=== PATIENT | female | born 1945 | race Caucasian/White ===

== ENCOUNTER 2022-09-17 09:00 | Inpatient (IN) | payer MEDICARE, OTHER ==
[2022-09-11 13:01] LABS: BASOPHILS # (AUTO) 0.1 X10'3 (0-0.2); BASOPHILS % (AUTO) 0.8 % (0-1); EOSINOPHILS # (AUTO) 0.3 X10'3 (0-0.9); EOSINOPHILS % (AUTO) 4.3 % (0-6); LYMPHOCYTES # (AUTO) 1.5 X10'3 (1.1-4.8); LYMPHOCYTES % (AUTO) 21.2 % (21-51); MEAN CORPUSCULAR HEMOGLOBIN 28.8 PG (27.0-31.0); MEAN CORPUSCULAR HGB CONC 32.9 g/dL (33.0-36.5); MEAN CORPUSCULAR VOLUME 87.5 FL (78-98); MEAN PLATELET VOLUME 7.1 FL (7.4-10.4); MONOCYTES # (AUTO) 0.5 X10'3 (0-0.9); MONOCYTES % (AUTO) 7.6 % (2-12); NEUTROPHILS # (AUTO) 4.6 X10'3 (1.8-7.7); NEUTROPHILS % (AUTO) 66.1 % (42-75); PRE OP HEMATOCRIT 36.7 % (35.0-45.0); PRE OP HEMOGLOBIN 12.1 g/dL (12.0-16.0); PRE OP PLATELET COUNT 347 X10'3 (140-440); RED BLOOD COUNT 4.19 X10'6 (4.20-5.60); RED CELL DISTRIBUTION WIDTH 14.7 % (11.5-14.5)
[2022-09-11 13:03] LABS: ALBUMIN 3.5 G/DL (3.4-5.0); ALBUMIN/GLOBULIN RATIO 0.9 (1.1-1.5); ALKALINE PHOSPHATASE 87 IU/L (46-116); BLOOD UREA NITROGEN 12 MG/DL (7-18); CALCIUM 9.1 MG/DL (8.5-10.1); CHLORIDE 104 MMOL/L (99-107); PRE OP ALT 17 U/L (30-65); PRE OP ANION GAP 8 (8-16); PRE OP AST 13 U/L (10-37); PRE OP BILIRUB, TOTAL 0.3 MG/DL (0.0-1.0); PRE OP GLUCOSE 111 MG/DL (70-104); PRE OP POTASSIUM 3.9 MMOL/L (3.4-5.1); PRE OP SODIUM 140 MMOL/L (135-145); TOTAL CARBON DIOXIDE 28.2 MMOL/L (24-32); TOTAL PROTEIN 7.6 G/DL (6.4-8.2); eGFR > 90 ML/MIN
[2022-09-17] VITALS (24 sets, daily range): BP systolic 106–174; BP diastolic 48–104
[~2022-09-17] VITALS: Ht 152.4 cm; Wt 108.9 kg
[~2022-09-17 09:00] MED LIST: ADV50250 INH; BENA20TA82 PO; CALC600T22 PO; CHOL10006 PO; FLUT16SP2 BOTHNARES; HYDROcodone/acetaminophen 10/325mg tab PO PRN; IBUP-2803 PO; LORA10TA61 PO; MULT-227 PO; OMEP20CA16 PO; acetaminophen 325mg tablet PO ONE; acetaminophen 325mg tablet PO PRN; bisacodyl 10mg suppository rectal RC PRN; cefazolin 2gm/D5W 100mL 100 ML IV ONE; celeCOXIB 100mg capsule PO ONE; diphenhydrAMINE 25mg capsule PO PRN; famotidine 20mg tablet PO ONE; gabapentin 300mg capsule PO ONE; magnesium hydroxide 30ml (MOM) UD suspension PO PRN; metoclopramide 5 mg/ml inj IV ONE; naloxone 0.4 mg/ml inj IV PRN; oxyCODONE SR 10mg (sust. release) tab -2 tabs (20mg) PO ONE; ringers solution, lacted 1,000 ML IV SCH; tranexamic acid inj. 1,000 MG in normal saline IV soln 100ML IV ONE; vancomycin 1,500 MG in NS 300ml IV soln IV ONE
[2022-09-17] MEDS ORDERED: albuterol 2.5 MG/3 ML nebule NEB PRN (10:20)
--- NOTE | 2022-09-17 10:30 | NUR ---
PT SHOWERED W/ CHG SOAP PER PROTOCOL X 5. PT ALSO READ OVER TOTAL JOINT BOOKLET AND STATES UNDERSTANDING. STRONG PALPABLE PEDAL PULSE TO RIGHT FOOT, MARKED W/ SKIN MARKER. GOOD CSM TO RIGHT FOOT.
[2022-09-17] MEDS ORDERED: ringers solution, lacted 1,000 ML IV SCH (11:25)
[2022-09-17] MEDS ORDERED: proCHLORperazine 10 MG/2 ml inj IV PRN (11:25)
[2022-09-17] MEDS ORDERED: meperidine/PF 25mg/ml syringe IV PRN ×3 (11:25)
[2022-09-17] MEDS ORDERED: ondansetron/PF 4mg/2ml inj IV PRN ×2 (11:25→14:00)
[2022-09-17] MEDS ORDERED: morphine 4 MG/ML inj SYRINge IV PRN (11:25)
[2022-09-17] MEDS ORDERED: morphine 2 MG/ML inj. syringe IV PRN (11:25)
[2022-09-17] MEDS ORDERED: MIDAZolam 1 MG/ML 5ML VIAL ONE (12:41)
[2022-09-17] MEDS ORDERED: fentaNYL/PF 50MCG/1 ML 2ML syringe ONE (12:41)
[2022-09-17] MEDS ORDERED: HYDROmorphone 1 mg/ml syringe IV PRN (13:00)
[2022-09-17] MEDS ORDERED: HYDROmorphone inj. 0.5 MG/0.5 ML DISP.SYRIN IV PRN (13:00)
[2022-09-17] MEDS ORDERED: epiNEPHrine 1 mg/ml inj ONE (13:46)
[2022-09-17] MEDS ORDERED: ROPIVAcaine 0.5% (5mg/ml) 30ml vial ONE ×2 (13:46→14:01)
[2022-09-17] MEDS ORDERED: cloNIDine hcl/PF 100mcg/ml inj ONE (13:46)
[2022-09-17] MEDS ORDERED: vancomycin 1,000mg inj ONE (13:46)
[2022-09-17] MEDS ORDERED: ROPIVAcaine 0.2%/PF PUMP/bolus 545 ML ADDCANAL SCH (14:25)
[2022-09-17] MEDS ORDERED: ROPIVAcaine 0.2% (10 MG/5 ML) BOLUS INJECTION ADDCANAL PRN (14:25)
[2022-09-17] MEDS ORDERED: BUPIVAcaine/PF 7.5mg/ml (0.75%) 10ml vial ONE (14:45)
--- NOTE | 2022-09-17 14:45 | NUR ---
Patient in room [facility] 358. I have received report from DAVID Cast and had the opportunity to ask questions and assume patient care.
--- NOTE | 2022-09-17 14:54 | NUR ---
Report called to receiving nurse. Transferred via BED W/2 BAGS OF Belongings. BLL, CALL LIGHT GIVEN, SIDE RAILS UP X 2. RECEIVING RN AT BEDSIDE TO RECEIVE PT, PTS AT BEDSIDE. Special Issues communicated to receiving nurse. YES. Addendum: 09/17/22 at 1729 by Serene Tadeo RN Amended: Links added. Addendum: 09/17/22 at 1732 by Serene Tadeo RN ERROR OF TIME: 16:54 FOR TRANSFER NOT 14:54.
--- NOTE | 2022-09-17 14:54 | NUR ---
Received from OR via BED, accompanied by Anesthesiologist DR GRANDE and report given by Anesthesiologist AND DOUBLE BASS PLAYER. PT DROWSY, DENIES PAIN. RIGHT KNEE W/KNEE WRAP, DRSG, POWDER PACK CDI, MARLY DRAIN/DRSG W/GREEN LIGHT ILLUMINATION, ADB CATHETER INTACT. Addendum: 09/17/22 at 1520 by Serene Tadeo RN Amended: Links added.
--- NOTE | 2022-09-17 17:16 | NUR ---
waiting on pharmacy for the cefazolin to be delivered.
[2022-09-17] MEDS ORDERED: tranexamic acid inj. 1,090 MG in normal saline 100ml IV soln 89.1 ML IV ONE (18:00)
--- NOTE | 2022-09-17 18:20 | NUR ---
Patient in room [facility] 358. I have received report from IMANI Newton and DAVID Connor and had the opportunity to ask questions and assume patient care.
--- NOTE | 2022-09-17 18:21 | NUR ---
Problems reprioritized. Patient report given, questions answered & plan of care reviewed with DAVID Kent.
[2022-09-17] MEDS: potassium cl 20mEq in 1/2 NS 1,000 ML IV SCH ×2 (18:51→23:00)
[2022-09-17] MEDS ORDERED: VANCOMYCIN 1,500MG inj. 1,500 MG in normal saline 500ml IV soln 300 ML IV ONE (20:00)
[2022-09-17] MEDS: budesonide 0.5mg/2ml UD nebule IH SCH (20:00)
[2022-09-17] MEDS: ascorbic acid 500mg tablet PO SCH (20:53)
[2022-09-17] MEDS: gabapentin 300mg capsule PO SCH (20:54)
[2022-09-17] MEDS ORDERED: sennosides 8.6mg tablet PO SCH (21:00)
[2022-09-17] MEDS ORDERED: lisinopril 20mg tablet PO SCH (21:00)
[2022-09-17] MEDS: HYDROcodone/acetaminophen 10/325mg tab PO PRN (21:10)
[2022-09-18 02:00] VITALS: BP 107/57
[2022-09-18] MEDS: HYDROcodone/acetaminophen 10/325mg tab PO PRN (06:36)
--- NOTE | 2022-09-18 06:47 | NUR ---
Problems reprioritized. Patient report given, questions answered & plan of care reviewed with DAVID Edmondson.
[2022-09-18 06:55] VITALS: BP 99/50
[2022-09-18 06:57] LABS: BASOPHILS % (AUTO) 0.3 % (0-1); EOSINOPHILS % (AUTO) 0.1 % (0-6); HEMATOCRIT 31.6 % (35.0-45.0); HEMOGLOBIN 10.3 g/dl (12.0-16.0); LYMPHOCYTES # (AUTO) 0.8 X10'3 (1.1-4.8); LYMPHOCYTES % (AUTO) 9.9 % (21-51); MEAN CORPUSCULAR HEMOGLOBIN 28.3 PG (27.0-31.0); MEAN CORPUSCULAR HGB CONC 32.4 g/dL (33.0-36.5); MEAN CORPUSCULAR VOLUME 87.3 FL (78-98); MEAN PLATELET VOLUME 6.9 FL (7.4-10.4); MONOCYTES # (AUTO) 0.6 X10'3 (0-0.9); MONOCYTES % (AUTO) 7.9 % (2-12); NEUTROPHILS # (AUTO) 6.2 X10'3 (1.8-7.7); NEUTROPHILS % (AUTO) 81.8 % (42-75); PLATELET COUNT 312 X10'3 (140-440); RED BLOOD COUNT 3.62 X10'6 (4.20-5.60); RED CELL DISTRIBUTION WIDTH 14.6 % (11.5-14.5); WHITE BLOOD COUNT 7.6 X10'3 (4.5-11.0)
[2022-09-18] MEDS: potassium cl 20mEq in 1/2 NS 1,000 ML IV SCH (07:00)
--- NOTE | 2022-09-18 07:01 | NUR ---
Patient in room [facility] 358. I have received report from shraddha dozier and had the opportunity to ask questions and assume patient care.
[2022-09-18 07:03] LABS: ANION GAP 5 (8-16); CHLORIDE 106 MMOL/L (99-107); POTASSIUM 4.1 MMOL/L (3.5-5.1); SODIUM 140 MMOL/L (135-145); TOTAL CARBON DIOXIDE 29.5 MMOL/L (24-32)
[2022-09-18] MEDS: gabapentin 300mg capsule PO SCH (07:38)
[2022-09-18] MEDS: ascorbic acid 500mg tablet PO SCH (08:00)
[2022-09-18] MEDS ORDERED: loratadine 10mg tablet PO PRN (08:00)
[2022-09-18] MEDS ORDERED: multivitamins, therapeutics tablet PO SCH (08:00)
[2022-09-18] MEDS ORDERED: pantoprazole 40mg Tablet.DR PO SCH (08:00)
[2022-09-18] MEDS ORDERED: fluticasone nasal spray 16GM bottle NS PRN (08:00)
[2022-09-18] MEDS ORDERED: aspirin 325mg tablet PO SCH (08:30)
[2022-09-18] MEDS: budesonide 0.5mg/2ml UD nebule IH SCH (09:46)
[2022-09-18 10:14] VITALS: BP 106/51
--- NOTE | 2022-09-18 13:49 | NUR ---
PT DISCHARGED IN STABLE CONDITION. LEFT FACILITY IN PRIVATE VEHICLE WITH . IV DCd CANULA INTACT. FOLLOW UP INSTRUCTIONS GIVEN, ALL QUESTIONS ANSWERED. ALL BELONGINGS IN HAND. Addendum: 09/18/22 at 1350 by Jo Ann Ramey RN Amended: Links added.
--- NOTE | 2022-09-18 17:31 | NUR ---
Joint surgery consult: Pt s/p R knee surgery but discharged prior to RD visit this admit. Written high protein diet ed w/ RD contact information mailed to pt home address provided in EMR. Addendum: 09/18/22 at [address] Amended: Links added.
[2022-09-18] MEDS ORDERED: celeCOXIB 100mg capsule PO SCH (20:00)
== END 2022-09-18 13:36 | disposition home or self-care (01) | DRG 470 ==
LOC: PAS 09:00 → SUR 3N 17:02
PROVIDERS: ADMIT Orthopaedic Surgery; ATTEND Orthopaedic Surgery
PROC: 3E0T3BZ Introduction of Anesthetic Agent into Peripheral Nerves and Plexi, Percutaneous Approach (ICD-10-PCS; 2022-09-17)
PROC: 3E0T33Z Introduction of Anti-inflammatory into Peripheral Nerves and Plexi, Percutaneous Approach (ICD-10-PCS; 2022-09-17)
PROC: 0SRC0J9 Replacement of Right Knee Joint with Synthetic Substitute, Cemented, Open Approach (ICD-10-PCS; principal; 2022-09-17 12:27)
DX: M17.11 Unilateral primary osteoarthritis, right knee (principal); Z79.899 Other long term (current) drug therapy
CPT/HCPCS: 36415; 73560; 80051; 80053; 82948; 84484; 85025; 86885; 86900; 86901; 87081; 93970; 94640; 94760; 97110; 97116; 97161; 97530; A4215; A4615; A7000; C1713; C1776; G0378; J0171; J0690; J0735; J2250; J2765; J2795; J3010; J3370; J3480; J3490; J7030; J7040; J7060; J7120

== ENCOUNTER 2022-09-18 15:13 | Emergency (ER) | payer MEDICARE, OTHER ==
[~2022-09-18] VITALS: Ht 152.4 cm; Wt 109.1 kg
[~2022-09-18 15:13] MED LIST changes: -HYDROcodone/acetaminophen 10/325mg tab PO PRN; -acetaminophen 325mg tablet PO ONE; -acetaminophen 325mg tablet PO PRN; -bisacodyl 10mg suppository rectal RC PRN; -cefazolin 2gm/D5W 100mL 100 ML IV ONE; -celeCOXIB 100mg capsule PO ONE; -diphenhydrAMINE 25mg capsule PO PRN; -famotidine 20mg tablet PO ONE; -gabapentin 300mg capsule PO ONE; -magnesium hydroxide 30ml (MOM) UD suspension PO PRN; -metoclopramide 5 mg/ml inj IV ONE; -naloxone 0.4 mg/ml inj IV PRN; -oxyCODONE SR 10mg (sust. release) tab -2 tabs (20mg) PO ONE; -ringers solution, lacted 1,000 ML IV SCH; -tranexamic acid inj. 1,000 MG in normal saline IV soln 100ML IV ONE; -vancomycin 1,500 MG in NS 300ml IV soln IV ONE
[2022-09-18] MEDS ORDERED: normal saline 1000ML IV soln IVB ONE (15:35)
[2022-09-18 15:54] LABS: BASOPHILS % (AUTO) 0.4 % (0-1); EOSINOPHILS % (AUTO) 0.5 % (0-6); HEMATOCRIT 31.1 % (35.0-45.0); HEMOGLOBIN 10.2 g/dl (12.0-16.0); LYMPHOCYTES # (AUTO) 1.2 X10'3 (1.1-4.8); LYMPHOCYTES % (AUTO) 12.1 % (21-51); MEAN CORPUSCULAR HEMOGLOBIN 28.7 PG (27.0-31.0); MEAN CORPUSCULAR HGB CONC 32.7 g/dL (33.0-36.5); MEAN CORPUSCULAR VOLUME 87.7 FL (78-98); MEAN PLATELET VOLUME 6.7 FL (7.4-10.4); NEUTROPHILS # (AUTO) 7.9 X10'3 (1.8-7.7); PLATELET COUNT 323 X10'3 (140-440); RED BLOOD COUNT 3.54 X10'6 (4.20-5.60); RED CELL DISTRIBUTION WIDTH 14.9 % (11.5-14.5); WHITE BLOOD COUNT 10.3 X10'3 (4.5-11.0)
[2022-09-18 16:24] LABS: ALANINE AMINOTRANSFERASE 15 U/L (12-78); ALBUMIN 2.9 G/DL (3.4-5.0); ALBUMIN/GLOBULIN RATIO 0.8 (1.1-1.5); ALKALINE PHOSPHATASE 66 IU/L (46-116); ANION GAP 7 (8-16); ASPARTATE AMINO TRANSFERASE 14 U/L (10-37); BILIRUBIN,TOTAL 0.4 MG/DL (0.1-1.0); BLOOD UREA NITROGEN 11 MG/DL (7-18); BUN/CREATININE RATIO 13.4 (10.0-20.0); CALCIUM 8.8 MG/DL (8.5-10.1); CHLORIDE 104 MMOL/L (99-107); CREATININE 0.82 MG/DL (0.40-0.90); GLUCOSE 161 MG/DL (70-104); SODIUM 140 MMOL/L (135-145); TOTAL CARBON DIOXIDE 28.7 MMOL/L (24-32); TOTAL PROTEIN 6.6 G/DL (6.4-8.2); eGFR 67 ML/MIN
--- NOTE | 2022-09-18 16:25 | NUR ---
FOREMAN/PILE DRIVING AND ERECTION AT BEDSIDE.
[2022-09-18] MEDS ORDERED: HYDROcodone/acetaminophen 5mg/325mg tablet PO ONE (17:20)
--- NOTE | 2022-09-18 18:25 | NUR ---
pt sat dropping to 88% on ra at rest. rn repositioned her and asked her to cough/deep breath. sat increased to 91%. rn notified myriam wood and he advised to have pt practive with IS. IS PROVIDED AND PT ACHIEVED 1000 COUGHED AND DEEP BREATHING. SAT NOW 95% ON ROOM AIR. ONCOMING DAVID MARTIN NOTIFIED AND SHE WILL DISCHARGE PT.
[2022-09-18 18:57] VITALS: BP 110/78
== END 2022-09-18 19:00 | disposition home or self-care (01) ==
LOC: ER 15:13
DX: R55 Syncope and collapse (principal)
CPT/HCPCS: 36415; 80053; 84484; 85025; 93970; J7030

== ENCOUNTER 2023-01-14 11:50 | Day surgery (SDC) | payer MEDICARE, OTHER ==
[2023-01-10 12:34] LABS: BASOPHILS # (AUTO) 0.1 X10'3 (0-0.2); BASOPHILS % (AUTO) 0.9 % (0-1); EOSINOPHILS # (AUTO) 0.8 X10'3 (0-0.9); EOSINOPHILS % (AUTO) 13.1 % (0-6); HEMOGLOBIN 11.8 g/dl (12.0-16.0); LYMPHOCYTES # (AUTO) 1.7 X10'3 (1.1-4.8); LYMPHOCYTES % (AUTO) 26.6 % (21-51); MEAN CORPUSCULAR HEMOGLOBIN 27.5 PG (27.0-31.0); MEAN CORPUSCULAR HGB CONC 32.9 g/dL (33.0-36.5); MEAN CORPUSCULAR VOLUME 83.7 FL (78-98); MEAN PLATELET VOLUME 7.1 FL (7.4-10.4); MONOCYTES # (AUTO) 0.5 X10'3 (0-0.9); MONOCYTES % (AUTO) 8.3 % (2-12); NEUTROPHILS # (AUTO) 3.2 X10'3 (1.8-7.7); NEUTROPHILS % (AUTO) 51.1 % (42-75); PLATELET COUNT 345 X10'3 (140-440); RED CELL DISTRIBUTION WIDTH 16.6 % (11.5-14.5); WHITE BLOOD COUNT 6.3 X10'3 (4.5-11.0)
[2023-01-10 12:45] LABS: ALBUMIN 3.5 G/DL (3.4-5.0); ANION GAP 8 (8-16); APTT 27 SECONDS (22-32); BLOOD UREA NITROGEN 13 MG/DL (7-18); BUN/CREATININE RATIO 19.7 (10.0-20.0); CALCIUM 9.4 MG/DL (8.5-10.1); CHLORIDE 103 MMOL/L (99-107); CHOL/HDL RATIO 2.9 (0.00-4.99); CHOLESTEROL 172 MG/DL (0-200); CREATININE 0.66 MG/DL (0.40-0.90); GLUCOSE 100 MG/DL (70-104); HDL CHOLESTEROL 59 MG/DL (35-60); INR 0.9 INR; LDL CHOLESTEROL 93 MG/DL (50-100); POTASSIUM 4.4 MMOL/L (3.5-5.1); PROTHROMBIN TIME 10.2 SECONDS (9.0-12.0); SODIUM 140 MMOL/L (135-145); TRIGLYCERIDES 118 MG/DL (20-135); eGFR 86 ML/MIN
[~2023-01-14] VITALS: Ht 152.4 cm; Wt 104.5 kg
[~2023-01-14 11:50] MED LIST changes: -CHOL10006 PO; -IBUP-2803 PO
[2023-01-14] MEDS ORDERED: LORazepam 0.5 MG tablet PO PRN (12:05)
[2023-01-14] MEDS ORDERED: diphenhydrAMINE 25mg capsule PO PRN (12:05)
[2023-01-14] MEDS ORDERED: normal saline 1,000 ML IV SCH (12:05)
[2023-01-14] MEDS ORDERED: ASPI-1397 PO (12:14)
[2023-01-14 12:24] VITALS: BP 153/90; PULSE 98; RESP 15; TEMP 98; O2SAT 97
[2023-01-14] MEDS ORDERED: midazolam 1 mg/ML 2ml injection ONE ×2 (14:17→14:48)
[2023-01-14] MEDS ORDERED: iohexol 350MG/ML 100ml bottle IV ONE (14:17)
[2023-01-14] MEDS ORDERED: verapamil 2.5 mg/ml inj IV ONE (14:17)
[2023-01-14] MEDS ORDERED: heparin 1,000unit/ml 10ml vial 10 ML ONE (14:17)
[2023-01-14] MEDS ORDERED: LIDOcaine 1% (10mg/ml) 2ml vial ONE ×2 (14:18→14:41)
[2023-01-14] MEDS ORDERED: nitroGLYCERIN-Tridil 50MG/D5W 250 ML IV ONE (14:18)
[2023-01-14] MEDS ORDERED: fentaNYL/PF 50MCG/1 ML 2ML syringe ONE (14:19)
[2023-01-14 15:21] VITALS: BP 150/75; PULSE 95; RESP 15; O2SAT 96
[2023-01-14] MEDS ORDERED: proCHLORperazine 10 MG/2 ml inj IV PRN (15:40)
[2023-01-14] MEDS ORDERED: HYDROcodone/acetaminophen 5mg/325mg tablet PO PRN (15:40)
[2023-01-14] MEDS ORDERED: OXAZEpam 15mg capsule PO PRN (15:40)
[2023-01-14] MEDS ORDERED: ondansetron/PF 4mg/2ml inj IV PRN (15:40)
[2023-01-14] MEDS ORDERED: normal saline 1000ml 1,000 ML IV SCH (15:40)
[2023-01-14] MEDS ORDERED: HYDROcodone/acetaminophen 10/325mg tab PO PRN (15:40)
[2023-01-14 15:45] VITALS: BP 142/79; PULSE 92; RESP 14; O2SAT 95
[2023-01-14 15:58] VITALS: BP 151/84; PULSE 93; RESP 15; O2SAT 96
[2023-01-14 16:13] VITALS: BP 131/69; PULSE 90; RESP 15; O2SAT 95
[2023-01-14 17:00] VITALS: BP 147/88; PULSE 89; RESP 15; O2SAT 96
== END 2023-01-14 17:35 | disposition home or self-care (01) ==
LOC: SSTAY O 11:50
PROVIDERS: ATTEND Student in an Organized Health Care Education/Training Program
DX: I35.0 Nonrheumatic aortic (valve) stenosis (principal); I10 Essential (primary) hypertension; I65.29 Occlusion and stenosis of unspecified carotid artery; Z79.899 Other long term (current) drug therapy
CPT/HCPCS: 36415; 80048; 80061; 85025; 85610; 85730; 93005; 93456; 99152; J1644; J2250; J3010; J3490; J7030; Q0163; Q9967; 99153; A6258; A6449; C1751; C1894

== ENCOUNTER 2023-01-24 10:26 | Outpatient (CLI) | payer MEDICARE, OTHER ==
[~2023-01-24 10:26] MED LIST changes: +ASPI-1397 PO; -LORA10TA61 PO
[2023-01-24 11:27] LABS: BASOPHILS % (AUTO) 0.7 % (0-1); EOSINOPHILS # (AUTO) 0.8 X10'3 (0-0.9); EOSINOPHILS % (AUTO) 12.2 % (0-6); HEMATOCRIT 36.1 % (35.0-45.0); HEMOGLOBIN 11.8 g/dl (12.0-16.0); LYMPHOCYTES # (AUTO) 1.6 X10'3 (1.1-4.8); LYMPHOCYTES % (AUTO) 24.6 % (21-51); MEAN CORPUSCULAR HEMOGLOBIN 27.5 PG (27.0-31.0); MEAN CORPUSCULAR HGB CONC 32.8 g/dL (33.0-36.5); MEAN CORPUSCULAR VOLUME 83.6 FL (78-98); MEAN PLATELET VOLUME 7.1 FL (7.4-10.4); MONOCYTES # (AUTO) 0.5 X10'3 (0-0.9); MONOCYTES % (AUTO) 7.6 % (2-12); NEUTROPHILS # (AUTO) 3.5 X10'3 (1.8-7.7); NEUTROPHILS % (AUTO) 54.9 % (42-75); PLATELET COUNT 321 X10'3 (140-440); RED BLOOD COUNT 4.31 X10'6 (4.20-5.60); RED CELL DISTRIBUTION WIDTH 16.8 % (11.5-14.5); WHITE BLOOD COUNT 6.4 X10'3 (4.5-11.0)
[2023-01-24 11:48] LABS: ALANINE AMINOTRANSFERASE 21 U/L (12-78); ALBUMIN 3.4 G/DL (3.4-5.0); ALBUMIN/GLOBULIN RATIO 0.8 (1.1-1.5); ALKALINE PHOSPHATASE 83 IU/L (46-116); ANION GAP 8 (8-16); ASPARTATE AMINO TRANSFERASE 15 U/L (10-37); BILIRUBIN,TOTAL 0.3 MG/DL (0.1-1.0); BLOOD UREA NITROGEN 13 MG/DL (7-18); BUN/CREATININE RATIO 19.4 (10.0-20.0); CALCIUM 9.3 MG/DL (8.5-10.1); CHLORIDE 104 MMOL/L (99-107); CREATININE 0.67 MG/DL (0.40-0.90); GLUCOSE 108 MG/DL (70-104); POTASSIUM 4.3 MMOL/L (3.5-5.1); PRO BRAIN NATRIURETIC PEPTIDE 145 PG/ML (0-450); SODIUM 141 MMOL/L (135-145); TOTAL CARBON DIOXIDE 29.1 MMOL/L (24-32); TOTAL PROTEIN 7.7 G/DL (6.4-8.2); eGFR 85 ML/MIN
[2023-01-24] MEDS ORDERED: IODIXANOL 320 MG/ML INFUS..BTL 100ML IV ONE (11:51)
== END 2023-01-24 23:59 | disposition home or self-care (01) ==
LOC: RAD 10:26
PROVIDERS: ATTEND Internal Medicine Cardiovascular Disease
DX: K57.30 Diverticulosis of large intestine without perforation or abscess without bleeding (principal); I35.0 Nonrheumatic aortic (valve) stenosis; R06.02 Shortness of breath; I65.29 Occlusion and stenosis of unspecified carotid artery; J98.4 Other disorders of lung; M47.816 Spondylosis without myelopathy or radiculopathy, lumbar region; M16.0 Bilateral primary osteoarthritis of hip; M19.011 Primary osteoarthritis, right shoulder; M19.012 Primary osteoarthritis, left shoulder
CPT/HCPCS: 71046; 71275; 74174; 75572; 80053; 83880; 85025; 94060; 94727; 94729; J3490; Q9967; 76377

== ENCOUNTER 2023-02-27 07:18 | Inpatient (IN) | payer MEDICARE, OTHER ==
[2023-02-21 11:49] LABS: BILIRUBIN,URINE NEGATIVE (Neg); CLARITY,URINE CLOUDY (Clear); COLOR,URINE YELLOW (Yellow); GLUCOSE, URINE NEGATIVE (Neg); KETONES,URINE NEGATIVE (Neg); LEUKOCYTE ESTERASE ,URINE LARGE (Neg); NITRITES, URINE POSITIVE (Neg); OCCULT BLOOD,URINE TRACE-INTACT (Neg); PROTEIN,URINE NEGATIVE (Neg); UROBILINOGEN,URINE 0.2 E.U/dL (0.2-1.0)
[2023-02-21 11:52] LABS: UA COLLECTION TYPE CLN CATCH MIDSTREAM
[2023-02-21 11:53] LABS: BASOPHILS % (AUTO) 0.7 % (0-1); EOSINOPHILS # (AUTO) 0.7 X10'3 (0-0.9); EOSINOPHILS % (AUTO) 10.9 % (0-6); LYMPHOCYTES # (AUTO) 1.5 X10'3 (1.1-4.8); MEAN CORPUSCULAR HEMOGLOBIN 27.2 PG (27.0-31.0); MEAN CORPUSCULAR HGB CONC 32.1 g/dL (33.0-36.5); MEAN CORPUSCULAR VOLUME 84.8 FL (78-98); MEAN PLATELET VOLUME 7.1 FL (7.4-10.4); MONOCYTES # (AUTO) 0.5 X10'3 (0-0.9); MONOCYTES % (AUTO) 8.1 % (2-12); NEUTROPHILS # (AUTO) 3.3 X10'3 (1.8-7.7); NEUTROPHILS % (AUTO) 55.3 % (42-75); PRE OP HEMATOCRIT 36.2 % (35.0-45.0); PRE OP HEMOGLOBIN 11.6 g/dL (12.0-16.0); PRE OP PLATELET COUNT 331 X10'3 (140-440); PRE OP WHITE BLOOD COUNT 6.1 10'3 (4.8-10.8); RED BLOOD COUNT 4.27 X10'6 (4.20-5.60); RED CELL DISTRIBUTION WIDTH 17.1 % (11.5-14.5)
[2023-02-21 12:04] LABS: PRE OP INR 0.9 INR; PRE OP PROTIME 10.1 SECONDS (9.0-12.0)
[2023-02-21 12:06] LABS: BACTERIA,URINE 4+ /HPF (Neg); RBC,URINE 0-2 /HPF (0-2); SQUAMOUS EPITHELIAL CELL,UR MANY /LPF (FEW)
[2023-02-21 12:19] LABS: ALBUMIN 3.5 G/DL (3.4-5.0); ALBUMIN/GLOBULIN RATIO 0.8 (1.1-1.5); ALKALINE PHOSPHATASE 83 IU/L (46-116); BLOOD UREA NITROGEN 15 MG/DL (7-18); BUN/CREATININE RATIO 21.4 (10.0-20.0); CALCIUM 9.5 MG/DL (8.5-10.1); CHLORIDE 104 MMOL/L (99-107); PRE OP ALT 14 U/L (30-65); PRE OP ANION GAP 7 (8-16); PRE OP AST 16 U/L (10-37); PRE OP BILIRUB, TOTAL 0.3 MG/DL (0.0-1.0); PRE OP GLUCOSE 102 MG/DL (70-104); PRE OP POTASSIUM 4.2 MMOL/L (3.4-5.1); PRE OP SODIUM 140 MMOL/L (135-145); PRO BRAIN NATRIURETIC PEPTIDE 165 PG/ML (0-450); TOTAL PROTEIN 7.8 G/DL (6.4-8.2); eGFR 81 ML/MIN
[~2023-02-27] VITALS: Ht 152.4 cm; Wt 97.6 kg
[2023-02-27] VITALS (31 sets, daily range): BP systolic 105–175; BP diastolic 47–87; PULSE 68–103; RESP 12–22; TEMP 97.6–98.3; O2SAT 91–100
[~2023-02-27 07:18] MED LIST changes: +BIOTIN; -CALC600T22 PO; +CITRICAL; +D3; +ESTER C; +KRILL OIL; +MAGNESIUM; +POTASSIUM; +aspirin 325mg tablet PO ONE; +cefazolin/dext.iso 2gm/100ml IVPB IV ONE; +famotidine 20mg tablet PO ONE; +ondansetron/PF 4mg/2ml inj IV PRN; +protamine sulfate 10mg/ml inj. ONE; +ringers solution, lacted 1,000 ML IV SCH; +vancomycin 1,500 MG in NS 300ml IV soln IV ONE
[2023-02-27] MEDS ORDERED: CIPR500T5 PO (08:11)
[2023-02-27] MEDS ORDERED: LIDOcaine 1% (10mg/ml) 2ml vial ONE (08:33)
[2023-02-27] MEDS ORDERED: LIDOcaine 1% (10mg/ml)w/preservative inj. 20ml MDV ONE (08:49)
[2023-02-27] MEDS ORDERED: iohexol 350MG/ML 100ml bottle IV ONE (08:50)
[2023-02-27] MEDS ORDERED: heparin 1,000 UNITS/NS 500ml 1,500 ML ONE (08:50)
[2023-02-27] MEDS ORDERED: hydrALAZINE 20mg/ml inj. IV PRN ×2 (08:55→10:40)
[2023-02-27] MEDS ORDERED: ringers solution, lacted 1,000 ML IV SCH (08:55)
[2023-02-27] MEDS ORDERED: morphine 4 MG/ML inj SYRINge IV PRN (08:55)
[2023-02-27] MEDS ORDERED: ondansetron/PF 4mg/2ml inj IV PRN ×2 (08:55→10:40)
[2023-02-27] MEDS ORDERED: morphine 2 MG/ML inj. syringe IV PRN (08:55)
[2023-02-27] MEDS ORDERED: fentaNYL/PF 50MCG/1 ML 2ML syringe ONE (08:57)
[2023-02-27] MEDS ORDERED: rocuronium 10mg/ml inj IV ONE (08:58)
[2023-02-27] MEDS ORDERED: dexamethasone sod phosphate 4mg/ml inj. ONE (08:58)
[2023-02-27] MEDS ORDERED: sugammadex 200mg/2ml injection IV ONE (08:58)
[2023-02-27] MEDS ORDERED: ondansetron/PF 4mg/2ml inj ONE (08:58)
[2023-02-27] MEDS ORDERED: midazolam 1 mg/ML 2ml injection ONE (08:58)
[2023-02-27] MEDS ORDERED: sevoflurane 250ml liquid IH ONE (08:58)
[2023-02-27] MEDS ORDERED: propofol inj 20 ML IV ONE (08:58)
[2023-02-27] MEDS ORDERED: heparin 1,000unit/ml 10ml vial 10 ML ONE (08:59)
[2023-02-27] MEDS ORDERED: heparin 1,000unit/ml 10ml vial 0 ML ONE (08:59)
[2023-02-27] MEDS: normal saline 1000ml 1,000 ML IV SCH ×2 (10:40→20:20)
[2023-02-27] MEDS ORDERED: magnesium 2GM in 50ml NS 50 ML IV PRN (10:40)
[2023-02-27] MEDS ORDERED: potassium Cl 20 mEq SR tablet PO PRN (10:40)
[2023-02-27] MEDS ORDERED: potassium Cl 40MEQ/270ML bag 250 ML IV PRN (10:40)
[2023-02-27] MEDS ORDERED: diphenhydrAMINE 25mg capsule PO PRN (10:40)
[2023-02-27] MEDS ORDERED: potassium Cl 20mEq/100mL bag 100 ML IV PRN (10:40)
[2023-02-27] MEDS ORDERED: potassium Cl 40MEQ/1/2NS 520ml 520 ML IV PRN (10:40)
[2023-02-27] MEDS ORDERED: pantoprazole 40mg Tablet.DR PO PRN (10:40)
[2023-02-27] MEDS ORDERED: proCHLORperazine 10 MG/2 ml inj IV PRN (10:40)
[2023-02-27] MEDS ORDERED: magnesium 4gm in 100ml NS 100 ML IV PRN (10:40)
[2023-02-27] MEDS ORDERED: potassium CL 10mEq/100ml bag 100 ML IV PRN (10:40)
[2023-02-27] MEDS ORDERED: acetaminophen 325mg tablet PO PRN (10:40)
[2023-02-27] MEDS ORDERED: docusate sod 100mg capsule PO PRN (10:40)
[2023-02-27] MEDS ORDERED: labetalol 20mg/4ml (5mg/ml) syringe IV PRN (10:40)
[2023-02-27] MEDS: nitroPRUSSIDE (NIPRIDE) (200MCG/ML) 100ML Drip IV SCH ×2 (11:20→16:42)
[2023-02-27] MEDS: phenylephrine inj 50 MG in normal saline 250ml IV solN IV SCH ×2 (11:31→21:29)
--- NOTE | 2023-02-27 11:47 | NUR ---
Received from OR via bed, accompanied by Anesthesiologist Rolando and report given by Anesthesiolgist. open hearth laborer RN at bedside assessed bilateral groin sites. Small hematoma on right groin prior to transfer noted. No change in size. Bilateral dressings, CDI. Bilateral DP pulses palpable. Pt sleepy but responding appropriately. Neuro assessment completed. VSS. Addendum: 02/27/23 at 1154 by Carly Salazar RN Amended: Links added.
--- NOTE | 2023-02-27 12:00 | NUR ---
left radial a-line removed, no hematoma present, gauze and coban placed on wrist.
[2023-02-27] MEDS ORDERED: fluticasone nasal spray 16GM bottle NS PRN (12:25)
--- NOTE | 2023-02-27 13:35 | NUR ---
At 1300, right groin hematoma notably increased from 2-5cm, hard to touch, laborer wood preserving plant notified. Manual pressured applied until cardiac catheterization technician team arrived at 1310. Santos, cathode washer applied manual pressure until 1315 and fem stop placed. Report given to DAVID Castaneda. Pt transferred at 1335, side rails up x3, all patient belongings with patient, bilateral groin check and pulses checked with DAVID Castaneda.
--- NOTE | 2023-02-27 13:40 | NUR ---
Patient in room PAS IN 900. I have received report from Connie HERNANDEZ and had the opportunity to ask questions and assume patient care. Pt and family in room. Pt very painfull from femstop. femstop pressure at 59 mmhg. Anita wick placed. medications for pain given. Addendum: 02/27/23 at 1433 by Judi Long RN Amended: Links added.
[2023-02-27] MEDS: ALPRAZolam 0.25mg tablet PO PRN (13:53)
[2023-02-27] MEDS: HYDROcodone/acetaminophen 5mg/325mg tablet PO PRN ×2 (13:54→20:01)
[2023-02-27] MEDS: ceFAZolin 1GM/D5W- ADD-VANTAGE 50 ML IV SCH (16:12)
[2023-02-27] MEDS: sod chloride 0.9% 10ml flush syringe IV SCH (16:18)
--- NOTE | 2023-02-27 18:23 | NUR ---
Problems reprioritized. Patient report given, questions answered & plan of care reviewed with Ben HERNANDEZ. Bedside report completed.. Addendum: 02/27/23 at 1824 by Judi Long RN Amended: Links added.
[2023-02-27] MEDS: vancomycin/NS 1 GM ADD-VANTAGE 250 ML IV SCH (20:02)
[2023-02-27] MEDS ORDERED: lisinopril 20mg tablet PO SCH (21:00)
[2023-02-28] MEDS: ALPRAZolam 0.25mg tablet PO PRN (00:04)
[2023-02-28] MEDS: HYDROcodone/acetaminophen 5mg/325mg tablet PO PRN (00:04)
[2023-02-28] MEDS: sod chloride 0.9% 10ml flush syringe IV SCH ×2 (00:05→08:00)
[2023-02-28] MEDS: ceFAZolin 1GM/D5W- ADD-VANTAGE 50 ML IV SCH ×2 (00:05→08:23)
[2023-02-28 00:30] VITALS: BP 92/58; PULSE 90; RESP 18; O2SAT 90
[2023-02-28 02:00] VITALS: BP 100/60; PULSE 94; RESP 17; TEMP 98.6; O2SAT 95
[2023-02-28 04:30] VITALS: BP 108/42; PULSE 85; RESP 18; O2SAT 98
[2023-02-28 06:00] VITALS: BP 96/48; PULSE 85; RESP 19; TEMP 98.3; O2SAT 95
--- NOTE | 2023-02-28 06:04 | NUR ---
Patient in room U 3012. I have received report from Ben HERNANDEZ and had the opportunity to ask questions and assume patient care. Addendum: 02/28/23 at 0605 by Judi Long RN Amended: Links added.
[2023-02-28 06:38] LABS: BASOPHILS % (AUTO) 0.5 % (0-1); EOSINOPHILS % (AUTO) 0.2 % (0-6); HEMATOCRIT 27.7 % (35.0-45.0); HEMOGLOBIN 9.1 g/dl (12.0-16.0); LYMPHOCYTES # (AUTO) 0.7 X10'3 (1.1-4.8); LYMPHOCYTES % (AUTO) 8.8 % (21-51); MEAN CORPUSCULAR HEMOGLOBIN 27.8 PG (27.0-31.0); MEAN CORPUSCULAR HGB CONC 32.7 g/dL (33.0-36.5); MEAN CORPUSCULAR VOLUME 84.9 FL (78-98); MEAN PLATELET VOLUME 6.7 FL (7.4-10.4); MONOCYTES # (AUTO) 0.6 X10'3 (0-0.9); MONOCYTES % (AUTO) 7.2 % (2-12); NEUTROPHILS # (AUTO) 6.6 X10'3 (1.8-7.7); NEUTROPHILS % (AUTO) 83.3 % (42-75); PLATELET COUNT 219 X10'3 (140-440); RED BLOOD COUNT 3.27 X10'6 (4.20-5.60); RED CELL DISTRIBUTION WIDTH 16.4 % (11.5-14.5); WHITE BLOOD COUNT 7.9 X10'3 (4.5-11.0)
[2023-02-28] MEDS: normal saline 1000ml 1,000 ML IV SCH (06:40)
[2023-02-28 07:04] LABS: ALANINE AMINOTRANSFERASE 18 U/L (12-78); ALBUMIN 2.8 G/DL (3.4-5.0); ALBUMIN/GLOBULIN RATIO 0.8 (1.1-1.5); ALKALINE PHOSPHATASE 61 IU/L (46-116); ANION GAP 6 (8-16); ASPARTATE AMINO TRANSFERASE 17 U/L (10-37); BILIRUBIN,TOTAL 0.4 MG/DL (0.1-1.0); BLOOD UREA NITROGEN 13 MG/DL (7-18); BUN/CREATININE RATIO 19.4 (10.0-20.0); CALCIUM 8.7 MG/DL (8.5-10.1); CHLORIDE 106 MMOL/L (99-107); CREATININE 0.67 MG/DL (0.40-0.90); GLUCOSE 124 MG/DL (70-104); MAGNESIUM 1.9 MG/DL (1.5-2.4); POTASSIUM 4.1 MMOL/L (3.5-5.1); PRO BRAIN NATRIURETIC PEPTIDE 310 PG/ML (0-450); SODIUM 140 MMOL/L (135-145); TOTAL CARBON DIOXIDE 28.3 MMOL/L (24-32); TOTAL PROTEIN 6.2 G/DL (6.4-8.2); eCRCL 49 ML/MIN; eGFR 85 ML/MIN
[2023-02-28 08:00] VITALS: RESP 18; O2SAT 95
[2023-02-28] MEDS ORDERED: non-formulary drug (Omeprazole 1 CAP) PO SCH (08:00)
[2023-02-28] MEDS ORDERED: aspirin 81mg, enteric-coated 1 TAB TABLET.DR PO SCH (08:00)
[2023-02-28] MEDS ORDERED: multivitamins, therapeutics tablet PO SCH (08:00)
[2023-02-28] MEDS: vancomycin/NS 1 GM ADD-VANTAGE 250 ML IV SCH (08:25)
[2023-02-28] MEDS ORDERED: aspirin 81mg tab.chew PO SCH (08:30)
[2023-02-28 11:02] VITALS: BP 127/58; PULSE 75; RESP 18; TEMP 98.1; O2SAT 99
--- NOTE | 2023-02-28 13:10 | NUR ---
All written and verbal orders for D/C given. All questions answered. activity and follow up appointments reviewed. Groin sites remain stable and unchanged. Pt home with family. staTED SHE HAD ALL BELONGINGS. Addendum: 02/28/23 at 1332 by Judi Long RN Amended: Links added.
== END 2023-02-28 13:57 | disposition home or self-care (01) | DRG 267 ==
LOC: PAS IN 07:18 → EDSTATUS 09:30 → PCU 3S 14:44
PROVIDERS: ADMIT Internal Medicine Cardiovascular Disease; ATTEND Internal Medicine Cardiovascular Disease
PROC: 03HY32Z Insertion of Monitoring Device into Upper Artery, Percutaneous Approach (ICD-10-PCS; 2023-02-27)
PROC: B41G1ZZ Fluoroscopy of Left Lower Extremity Arteries using Low Osmolar Contrast (ICD-10-PCS; 2023-02-27)
PROC: B41F1ZZ Fluoroscopy of Right Lower Extremity Arteries using Low Osmolar Contrast (ICD-10-PCS; 2023-02-27)
PROC: 02RF38Z Replacement of Aortic Valve with Zooplastic Tissue, Percutaneous Approach (ICD-10-PCS; principal; 2023-02-27 08:58)
DX: I35.0 Nonrheumatic aortic (valve) stenosis (principal); Z00.6 Encounter for examination for normal comparison and control in clinical research program; Z68.42 Body mass index [BMI] 45.0-49.9, adult; I10 Essential (primary) hypertension; Z96.659 Presence of unspecified artificial knee joint; E66.9 Obesity, unspecified
CPT/HCPCS: 33361; 36415; 71045; 71046; 76937; 80053; 81001; 82948; 83735; 83880; 85025; 85347; 85610; 85730; 86885; 86900; 86901; 86920; 87077; 87081; 87088; 87186; 93005; 93308; A4618; A4620; A6258; A6402; A6449; C1756; C1760; C1769; C1894; G0378; J0690; J1100; J1644; J2250; J2270; J2370; J2405; J2704; J2720; J3010; J3370; J3490; J7040; J7050; J7120; Q9967

== ENCOUNTER 2023-07-26 09:23 | Observation (INO) | payer MEDICARE, OTHER ==
[~2023-07-26] VITALS: Ht 152.4 cm; Wt 116.3 kg
[~2023-07-26 09:23] MED LIST changes: +CIPR500T5 PO; -aspirin 325mg tablet PO ONE; -cefazolin/dext.iso 2gm/100ml IVPB IV ONE; -famotidine 20mg tablet PO ONE; -ondansetron/PF 4mg/2ml inj IV PRN; -protamine sulfate 10mg/ml inj. ONE; -ringers solution, lacted 1,000 ML IV SCH; -vancomycin 1,500 MG in NS 300ml IV soln IV ONE
[2023-07-26] MEDS: acetaminophen 325mg tablet PO ONE (11:55)
[2023-07-26 12:05] LABS: BASOPHILS % (AUTO) 0.3 % (0-1); EOSINOPHILS % (AUTO) 0.2 % (0-6); HEMATOCRIT 35.6 % (35.0-45.0); HEMOGLOBIN 11.3 g/dl (12.0-16.0); LYMPHOCYTES # (AUTO) 0.6 X10'3 (1.1-4.8); LYMPHOCYTES % (AUTO) 5.2 % (21-51); MEAN CORPUSCULAR HGB CONC 31.8 g/dL (33.0-36.5); MEAN CORPUSCULAR VOLUME 81.7 FL (78-98); MEAN PLATELET VOLUME 7.3 FL (7.4-10.4); MONOCYTES # (AUTO) 0.5 X10'3 (0-0.9); MONOCYTES % (AUTO) 4.6 % (2-12); NEUTROPHILS # (AUTO) 10.4 X10'3 (1.8-7.7); NEUTROPHILS % (AUTO) 89.7 % (42-75); PLATELET COUNT 263 X10'3 (140-440); RED BLOOD COUNT 4.36 X10'6 (4.20-5.60); RED CELL DISTRIBUTION WIDTH 17.5 % (11.5-14.5); WHITE BLOOD COUNT 11.6 X10'3 (4.5-11.0)
[2023-07-26 12:32] LABS: ALANINE AMINOTRANSFERASE 21 U/L (12-78); ALBUMIN 3.4 G/DL (3.4-5.0); ALBUMIN/GLOBULIN RATIO 0.7 (1.1-1.5); ALKALINE PHOSPHATASE 95 IU/L (46-116); ANION GAP 10 (8-16); ASPARTATE AMINO TRANSFERASE 18 U/L (10-37); BILIRUBIN,DIRECT 0.1 MG/DL (0-0.3); BILIRUBIN,TOTAL 0.4 MG/DL (0.1-1.0); BLOOD UREA NITROGEN 13 MG/DL (7-18); BUN/CREATININE RATIO 17.8 (10.0-20.0); CALCIUM 9.1 MG/DL (8.5-10.1); CHLORIDE 102 MMOL/L (99-107); CREATININE 0.73 MG/DL (0.40-0.90); GLUCOSE 138 MG/DL (70-104); MAGNESIUM 2.1 MG/DL (1.5-2.4); POTASSIUM 4.3 MMOL/L (3.5-5.1); SODIUM 143 MMOL/L (135-145); TOTAL CARBON DIOXIDE 31.3 MMOL/L (24-32); TOTAL PROTEIN 8.3 G/DL (6.4-8.2); eCRCL 47 ML/MIN; eGFR 77 ML/MIN
[2023-07-26] MEDS: CefTRIAXone 2gm/D5W 50ml BAG 50 ML IV ONE (12:50)
[2023-07-26] MEDS: normal saline 1000ML IV soln IV ONE (12:51)
[2023-07-26] MEDS: albuterol 2.5 MG/3 ML nebule NEB ONE (13:35)
[2023-07-26] MEDS: ipratropium 0.5 MG/2.5ML nebule IH ONE (13:35)
[2023-07-26 14:30] LABS: BILIRUBIN,URINE NEGATIVE (Neg); CLARITY,URINE CLOUDY (Clear); COLOR,URINE YELLOW (Yellow); GLUCOSE, URINE NEGATIVE (Neg); KETONES,URINE TRACE mg/dl (Neg); LEUKOCYTE ESTERASE ,URINE SMALL (Neg); NITRITES, URINE NEGATIVE (Neg); OCCULT BLOOD,URINE SMALL (Neg); PH,URINE 6.5 (4.8-8.0); PROTEIN,URINE TRACE mg/dl (Neg)
[2023-07-26 14:36] LABS: UA COLLECTION TYPE NON-SPECIFIED
[2023-07-26 14:40] LABS: AMORPHOUS URATES 1+; BACTERIA,URINE 3+ /HPF (Neg); MUCUS STRANDS FEW /LPF (Neg); RBC,URINE 0-2 /HPF (0-2); SQUAMOUS EPITHELIAL CELL,UR MANY /LPF (FEW); WBC,URINE 0-4 /HPF (0-4)
[2023-07-26] MEDS ORDERED: morphine 2 MG/ML inj. syringe IV PRN (16:00)
[2023-07-26] MEDS ORDERED: HYDROcodone/acetaminophen 5mg/325mg tablet PO PRN (16:00)
[2023-07-26] MEDS ORDERED: magnesium Cl slow-release 64mg tablet PO PRN (16:00)
[2023-07-26] MEDS ORDERED: acetaminophen 325mg tablet PO PRN (16:00)
[2023-07-26] MEDS ORDERED: magnesium 2GM in 50ml NS 50 ML IV PRN (16:00)
[2023-07-26] MEDS ORDERED: ondansetron/PF 4mg/2ml inj IV PRN (16:00)
[2023-07-26] MEDS ORDERED: potassium Cl 40MEQ/1/2NS 520ml 520 ML IV PRN (16:00)
[2023-07-26] MEDS ORDERED: potassium Cl 20 mEq SR tablet PO PRN ×2 (16:00)
[2023-07-26] MEDS ORDERED: magnesium hydroxide 30ml (MOM) UD suspension PO PRN (16:00)
[2023-07-26] MEDS ORDERED: mag hydrox/Alum hydrox/simeth 30ml oral suspension PO PRN (16:00)
[2023-07-26] MEDS ORDERED: ondansetron 4mg rapidly disintigrating tab PO PRN (16:00)
[2023-07-26] MEDS ORDERED: HYDROcodone/acetaminophen 10/325mg tab PO PRN (16:00)
[2023-07-26] MEDS ORDERED: magnesium 4gm in 100ml NS 100 ML IV PRN (16:00)
[2023-07-26 16:34] LABS: APTT 29 SECONDS (22-32); PROTHROMBIN TIME 10.5 SECONDS (9.0-12.0)
[2023-07-26 16:35] LABS: PRO BRAIN NATRIURETIC PEPTIDE 326 PG/ML (0-450)
[2023-07-26] MEDS: enoxaparin 40mg/0.4ml syringe SQ SCH (17:27)
[2023-07-26] MEDS: morphine 2 MG/ML inj. syringe IV PRN (17:37)
[2023-07-26] MEDS: K and/or MAG REPLACEMENT MC SCH (19:37)
[2023-07-26] MEDS: guaiFENesin ER 600mg tablet PO SCH (20:40)
[2023-07-26] MEDS: acetaminophen 325mg tablet PO PRN (20:40)
[2023-07-26] MEDS: azithromycin 250mg tablet PO ONE (20:41)
[2023-07-26] MEDS: metoprolol tartrate 50mg tablet PO ONE (20:41)
[2023-07-26] MEDS: albuterol 2.5 MG/3 ML nebule NEB SCH (20:59)
[2023-07-26 21:00] VITALS: PULSE 97; RESP 18; O2SAT 97
[2023-07-26 21:07] VITALS: PULSE 100; RESP 16
[2023-07-26 23:53] VITALS: PULSE 92; RESP 22; O2SAT 99
[2023-07-27] VITALS (11 sets, daily range): BP systolic 123–155; BP diastolic 58–75; PULSE 86–106; RESP 13–31; TEMP 98.2–101.5; O2SAT 91–95
[2023-07-27 06:25] LABS: ALBUMIN 2.5 G/DL (3.4-5.0); ANION GAP 11 (8-16); BLOOD UREA NITROGEN 10 MG/DL (7-18); BUN/CREATININE RATIO 16.4 (10.0-20.0); CHLORIDE 105 MMOL/L (99-107); CREATININE 0.61 MG/DL (0.40-0.90); GLUCOSE 112 MG/DL (70-104); MAGNESIUM 1.8 MG/DL (1.5-2.4); PHOSPHORUS 2.8 MG/DL (2.3-4.5); POTASSIUM 3.6 MMOL/L (3.5-5.1); SODIUM 140 MMOL/L (135-145); TOTAL CARBON DIOXIDE 23.7 MMOL/L (24-32); eCRCL 54 ML/MIN; eGFR > 90 ML/MIN
[2023-07-27 06:36] LABS: BASOPHILS % (AUTO) 0.2 % (0-1); EOSINOPHILS % (AUTO) 0.1 % (0-6); HEMATOCRIT 28.8 % (35.0-45.0); HEMOGLOBIN 9.2 g/dl (12.0-16.0); LYMPHOCYTES # (AUTO) 1.2 X10'3 (1.1-4.8); LYMPHOCYTES % (AUTO) 11.3 % (21-51); MEAN CORPUSCULAR HEMOGLOBIN 26.5 PG (27.0-31.0); MEAN CORPUSCULAR HGB CONC 32.1 g/dL (33.0-36.5); MEAN CORPUSCULAR VOLUME 82.6 FL (78-98); MEAN PLATELET VOLUME 7.4 FL (7.4-10.4); MONOCYTES # (AUTO) 0.8 X10'3 (0-0.9); MONOCYTES % (AUTO) 7.7 % (2-12); NEUTROPHILS # (AUTO) 8.2 X10'3 (1.8-7.7); NEUTROPHILS % (AUTO) 80.7 % (42-75); PLATELET COUNT 200 X10'3 (140-440); RED BLOOD COUNT 3.49 X10'6 (4.20-5.60); RED CELL DISTRIBUTION WIDTH 17.2 % (11.5-14.5); WHITE BLOOD COUNT 10.2 X10'3 (4.5-11.0)
[2023-07-27] MEDS: azithromycin 250mg tablet PO SCH (08:53)
[2023-07-27] MEDS: CefTRIAXone/D5W-Rocephin 1gm 50 ML IV SCH (08:56)
== END 2023-07-27 14:56 | disposition home or self-care (01) ==
LOC: ER 09:23 → ED HOLD 16:07 → INTOOBSV 16:07 → EDBEDREQ 07-27 00:08 → PCU 3S 07-27 01:45
PROVIDERS: ADMIT Internal Medicine; ATTEND Internal Medicine
DX: J06.9 Acute upper respiratory infection, unspecified (principal); Z20.822 Contact with and (suspected) exposure to COVID-19; R65.10 Systemic inflammatory response syndrome (SIRS) of non-infectious origin without acute organ dysfunction; I10 Essential (primary) hypertension; J45.909 Unspecified asthma, uncomplicated; R00.0 Tachycardia, unspecified; M19.90 Unspecified osteoarthritis, unspecified site; I48.91 Unspecified atrial fibrillation; Z95.2 Presence of prosthetic heart valve; Z87.891 Personal history of nicotine dependence; Z79.899 Other long term (current) drug therapy
CPT/HCPCS: 36415; 71045; 80048; 80076; 81001; 83605; 83735; 83880; 84100; 84145; 85025; 85610; 85730; 87040; 87081; 87502; 87503; 87634; 87811; 93005; 94640; 94760; 96365; 96366; 96372; 96375; 99291; G0378; J0696; J1650; J2270; J7030; 99285; A4615